=== PATIENT | female | born 1975 | race Caucasian/White ===

== ENCOUNTER 2017-09-20 21:20 | Emergency (ER) | payer SELFPAY ==
[~2017-09-20] VITALS: Ht 167.6 cm; Wt 81.6 kg
[2017-09-20 21:40] VITALS: BP 151/75
[2017-09-20] MEDS ORDERED: IBUPROFEN 400 MG TABLET ONE (22:29)
[2017-09-20] MEDS ORDERED: IBUPROFEN 400 MG TABLET PO ONE (22:30)
[2017-09-20] MEDS ORDERED: ONDANSETRON 4 MG TAB.RAPDIS SL ONE (23:00)
[2017-09-20] MEDS ORDERED: ONDANSETRON 4 MG TAB.RAPDIS ONE (23:20)
== END 2017-09-21 00:09 | disposition home or self-care (01) ==
LOC: ER 21:24
DX: S13.4XXA Sprain of ligaments of cervical spine, initial encounter (principal); M54.6 Pain in thoracic spine; V43.52XA Car driver injured in collision with other type car in traffic accident, initial encounter; Y92.89 Other specified places as the place of occurrence of the external cause; Y92.410 Unspecified street and highway as the place of occurrence of the external cause; Y99.8 Other external cause status
CPT/HCPCS: 72050; 72074; 99284; A4606 ×2; Q0162; Z7610